=== PATIENT | male | born 1985 | race Caucasian/White ===

== ENCOUNTER 2024-04-18 16:48 | Emergency (ER) | payer BC, SELFPAY ==
[2024-04-18 16:51] VITALS: BP 143/107; PULSE 97; TEMP 37; O2SAT 97; BMI 26.8
--- NOTE | 2024-04-18 17:01 | ED_ITS ---
HPI HPI - Extremity Injury (Upper) General Chief Complaint: Extremity Injury, Upper Stated Complaint: UPPER EXTREMITY LACERATION Time Seen by Provider: 04/18/24 16:56 Source: patient Mode of arrival: walk-in History of Present Illness HPI narrative: 38 year old male presents to the ED for a laceration to his right forearm s/p injury today. Reports cutting it on a piece of metal at work today. Denies fever, chills, weakness, N/T. He has full ROM to the RUE. Tetanus status is unknown. Related Data Allergies Allergy/AdvReac Type Severity Reaction Status Date / Time No Known Drug Allergies Allergy Verified 04/18/24 16:55 Opioid HPI Opioid Management Most Recent Pain and Opioid Data: No Data to Display Review of Systems ROS Constitutional Denies: fever or chills Cardiovascular Denies: chest pain Respiratory Denies: shortness of breath Integumentary/Breast Reports: other (Laceration right forearm) Neurological Denies: numbness in extremities or weakness in extremities Exam Constitutional Vital Signs, click to edit/add: Last Vital Signs Temp 98.6 F 04/18/24 16:51 Pulse 97 H 04/18/24 16:51 Resp 16 04/18/24 16:51 BP 137/92 H 04/18/24 17:43 Pulse Ox 97 04/18/24 16:51 O2 Del Method Room Air 04/18/24 16:51 Common normals: no apparent distress and oriented x3 General appearance: cooperative Eye Common normals: conjunctivae normal and no scleral icterus Neck & C-Spine Common normals: supple Chest Chest: symmetrical chest wall rise Respiratory Common normals: normal respiratory effort Effort & inspection: able to speak in complete sentences Cardio Common normals: regular rate Peripheral pulses: radial pulses present and ulnar pulses present Extremity Other: 4 cm laceration to right anterior forearm. No active bleeding. Appears superficial. Sutures indicated. Distal sensation intact. Full ROM to right hand, wrist. Cap refill <3 sec. Neuro Common normals: oriented x3 Sensorium/orientation: awake and alert Speech: speech normal Course Vital Signs Vital signs: Vital Signs Temperature 98.6 F 04/18/24 16:51 Pulse Rate 97 H 04/18/24 16:51 Respiratory Rate 16 04/18/24 16:51 Blood Pressure 143/107 H 04/18/24 16:51 Pulse Oximetry 97 04/18/24 16:51 Oxygen Delivery Method Room Air 04/18/24 16:51 Temperature 98.6 F 04/18/24 16:51 Pulse Rate 97 H 04/18/24 16:51 Respiratory Rate 16 04/18/24 16:51 Blood Pressure 137/92 H 04/18/24 17:43 Pulse Oximetry 97 04/18/24 16:51 Oxygen Delivery Method Room Air 04/18/24 16:51 MDM - Extremity Injury (Upper) MDM Narrative Medical decision making narrative: The wound was irrigated and sutures were placed. He tolerated the procedure well. A dressing was applied. Follow up with pcp for a recheck, further evaluation and treatment. Suture removal in 10-14 days. He reported he is not filing workman's comp. Discharge Plan Discharge Stand Alone Forms: Work/School Release, Portal Instructions Chief Complaint: Extremity Injury, Upper Clinical Impression: Forearm laceration Patient Disposition: Home, Self-Care Time of Disposition Decision: 17:39 Condition: Good Mode of Transportation: Private Vehicle Print Language: Georgian Instructions: Laceration (ED) Additional Instructions: The stitches will need to be removed in 10-14 days. Watch for signs of infection: redness, purulent drainage, swelling. Keep the wound clean and dry. Gently cleansing with soap and water is okay. Do not soak the wound. Discharge Date/Time: 04/18/24 17:58 Procedures ED Laceration Laceration Laceration 1: Site: upper extremity Side (if applicable): right Size (cm): 4 Description: linear Depth: simple, single layer Anesthetic used: lidocaine 1% Anesthesia technique: local infiltration Pre-repair: irrigated extensively Skin layer closed with: other (Nylon) Size (cm): 4-0 Number of sutures: 8 Technique: simple, interrupted
[2024-04-18] MEDS: ADACEL DIPH,PERTUSS(ACELL),TET VAC/PF 0.5 ML ADULT SYRINGE IM (17:17)
[2024-04-18] MEDS: LIDOCAINE HCL 1% 100 MG/10 ML MDV INJ (17:17)
[2024-04-18] MEDS: BACITRACIN 0.9 GM PACKET 1 PACKET TOPICAL (17:38)
[2024-04-18 17:43] VITALS: BP 137/92
== END 2024-04-18 17:58 | disposition home or self-care (01) ==
LOC: ER 17:51
PROVIDERS: Emergency Provider Emergency Medicine
DX: S51.811A Laceration without foreign body of right forearm, initial encounter (principal); Z23 Encounter for immunization; W26.8XXA Contact with other sharp object(s), not elsewhere classified, initial encounter
CPT/HCPCS: 12002; 90471; 90715; 99284